=== PATIENT | female | born 1930 | race Caucasian/White ===

== ENCOUNTER 2016-08-15 17:21 | Emergency (ER) | payer MEDICARE ==
[~2016-08-15] VITALS: Ht 157.5 cm; Wt 55.5 kg
[~2016-08-15 17:21] MED LIST: ASPI-378 PO; CA C1TAB28 PO; CALC-787 PO; FERR-83 PO; INSU100V23 SUBQ; OMEP20CA11 PO; PRA20 PO; PYRIDOSTIGMINE PO; SYN.1T2 PO; VITA1CAP PO; prednisone PO
[2016-08-15 17:33] VITALS: BP 231/94; PULSE 75; RESP 16; O2SAT 96
--- NOTE | 2016-08-15 20:14 | ED.REPORT ---
HPI-General Illness Date of Service Aug 15, 2016 ED Provider: Ronaldo Lea DO Patient is a 85 year old female with a history of hypertension who presents to the ED from [place] after she was found to have high blood pressure just prior to arrival. Patient states that she was eating when staff came to take her blood pressure. This upset the patient and her blood pressure was found to be elevated. Her PCP was consulted by [place] staff, who states that she should be sent to the ED. Her blood pressure is typically well controlled by her blood pressure medications, but this happens occasionally when she is upset. Patient denies having a headache, chest pain, shortness of breath, nausea , vomiting, dizziness, or any other discomfort. She denies having any complaints associated with her high blood pressure. Her blood pressure was 231/ 94 on intake. Nursing Notes Stated Complaint: HIGH BLOOD PRESSURE Chief Complaint: General Complaint Nursing Notes Reviewed: Yes Allergies: Coded Allergies: Sulfa (Sulfonamide Antibiotics) (Verified Allergy, Unknown, 08/15/16) Tetanus Vaccines and Toxoid (Verified Allergy, Unknown, 08/15/16) lisinopril (Verified Allergy, Unknown, 08/15/16) Scheduled ([prednisone]) 35 MG PO DAILY ([pyridostigmine]) 60 MG PO TID Aspirin-Expunged Drug, Do Not Renew! (Aspirin-Expunged Drug, Do Not Renew!) 81 Mg Tablet. 81 MG PO AM Ca Cmb No.1/Vit D3/B-6/FA/B12 (Vitamin D3 1,000 Unit Tablet) 1 Each Tablet 1 EACH PO PM Calcium Phosphate Trib/Vit D3 (Citracal-Vit D Gummie Tab Chew) 1 Each Tab.chew 2 EACH PO DAILYWD Ferrous Sulfate (Ferrous Sulfate) 325 Mg Tablet 325 MG PO AM Levothyroxine-Expunged Drug, Do Not Renew! (Synthroid-Expunged Drug, Do Not Renew!) 100 Mcg Tablet 112 MCG PO DAILYAC Omeprazole-Expunged Drug, Do Not Renew! (Omeprazole-Expunged Drug, Do Not Renew! ) 20 Mg Capsule. 20 MG PO DAILY Pravastatin-Expunged Drug, Do Not Renew! (Pravachol-Expunged Drug, Do Not Renew! ) 20 Mg Tab 20 MG PO HS Vitamin B Complex (Vitamin B Complex) 1 Each Capsule 1 EACH PO BID Scheduled PRN Insulin Lispro-Expunged Drug, Do Not Renew! (Humalog-Expunged Drug, Do Not Renew !) 300 Unit Vial 0-3 UNIT SUBQ PRN PRN PRN PER MEDIUM DOSE SLIDING SCALE WHILE ON STEROIDS General Time Seen by MD: 20:06 Chief Complaint Other (hypertension) Hx Obtained From: Patient Arrived By: Ambulance Sudden in Onset?: No Onset Occurred: Just prior to arrival Symptom Duration: Since onset Severity: Current: No pain currently Severity: Maximum: No pain Recent Healthcare: No recent doctor visit, No recent hospitalization Similar Sx Previous: Yes Past Medical History Past Medical History thyroid cancer CVA hypertension gastric ulcer GERD hiatal hernia arthritis Past Surgical History thyroidectomy bilateral leg vein stripping Reports: Cataract surgery Smoking History Unknown if Ever Smoker Social History Other Social History: Good social support, Lives in [place], Local resident Ambulatory Status Independent Review of Systems Full Review of Systems Respiratory: Denies: Non-productive cough, Shortness of breath Cardiovascular: Denies: Chest pain, Palpitations GI: Denies: Nausea, Vomiting Neurologic: Denies: Change LOC, Dizziness, Headache, Lightheaded Complete sys rev & neg: except as marked. Physical Exam Vital Signs Vital Signs Date Time Temp Pulse Resp B/P Pulse Ox O2 Delivery O2 Flow Rate FiO2 08/15/16 22:25 78 20 178/86 08/15/16 20:22 77 20 189/88 95 Room Air 08/15/16 17:33 36.6 75 16 231/94 96 Room Air Initial VS: Reviewed Head / Eyes: Atraumatic, Normocephalic, PERRL ENT: Conjunctiva normal, No scleral icterus Neck: Supple, Full range of motion Respiratory: Breath sounds normal, Clear to auscultation, No respiratory distress Cardiovascular: Regular rate & rhythm, Heart sounds normal Abdomen / GI: Soft, Non-tender, No guarding, No rebound Extremities: Vascular intact, Neuro intact, No swelling, No tenderness Skin: Warm, Dry, No cyanosis Neurologic: Alert, Oriented, Nonfocal Psychiatric: Mood/affect normal, Behavior normal, Normal thought content General/Constitutional: Awake, Alert, No acute distress Interpretation & Diagnostics Lab Results Interpretation Result Diagram: 08/15/16202408/15/162024 Test 08/15/16 20:25 08/15/16 22:10 White Blood Count 5.8th/mm3 (3.8-10.1) Red Blood Count 4.66mil/mm3 (3.90-5.20) Hemoglobin 13.9g/dL (12.0-15.6) Hematocrit 42.9% (35.0-46.0) Mean Corpuscular Volume 92.1fL (81-100) Mean Corpuscular Hemoglobin 29.8pg (27.0-35.0) Mean Corpuscular Hemoglobin Concent 32.4% (32.0-37.0) Red Cell Distribution Width 14.5% (12.3-15.4) Platelet Count 259bil/L (150-400) Neutrophils (%) (Auto) 64.8% (40-74) Lymphocytes (%) (Auto) 26.5% (14-46) Monocytes (%) (Auto) 6.4% (4-12) Eosinophils (%) (Auto) 1.2% (0-5) Basophils (%) (Auto) 0.9% (0-3) Sodium Level 143mEq/L (134-144) Potassium Level 4.2mEq/L (3.5-5.2) Chloride Level 103mEq/L (97-108) Carbon Dioxide Level 22mmol/L (18-29) Blood Urea Nitrogen 16mg/dL (8-27) Creatinine 0.89mg/dL (0.57-1.00) Estimat Glomerular Filtration Rate 86mL/min (>59) Glucose Level 182mg/dL (60-99) Calcium Level 8.9mg/dL (8.5-10.1) Total Bilirubin 0.3mg/dL (0.0-1.2) Aspartate Amino Transf (AST/SGOT) 27U/L (0-50) Alanine Aminotransferase (ALT/SGPT) 14U/L (0-32) Alkaline Phosphatase 82U/L (25-165) Troponin T 0.011ug/L (0.0-0.011) Pro-B-Type Natriuretic Peptide 703.6pg/mL (0-738) Total Protein 7.8g/dL (6.4-8.4) Albumin 4.3g/dL (3.4-5.0) Hold Urine Received (Received) Pulse Oximetry Interpretation Pulse Oximetry: Pulse Ox normal ECG Interpretation ECG Interpretation: Sinus rhythm, Rate 75 LVH Time: 20:16 Interpreted by: ED physician Re-Eval/Medical Decision Source of Hx: Old records Time of Eval: 20:48 Re-Evaluation/Progress Note: Rechecked the patient. Informed her that her blood pressure is now improved. Awaiting lab results prior to discharge. Time of Eval: 21:30 Re-Evaluation/Progress Note: Informed the patient that is call is out to her PCP. Discussed the results of her labs. Time of Eval: 22:07 Patient Status: Condition improved Re-Evaluation/Progress Note: Informed the patient of the conversation with Dr. Alves. Patient will be able to take 2.5mg Felodipine when her blood pressure is above 180 systolic. A nurse will call [place] tomorrow to schedule close follow-up. No acute problem on labs. Patient understands and agrees with the plan to be discharged. Discharge instructions and follow-up discussed. All questions were addressed. Return to the ED warnings given. Consultation : Referral / Consult Name: Lourdes Alves MD Consulted With: Primary care physician, On-call physician Call Returned at: 21:35 [employer] Consultant: Agrees with eval, Agrees with plan Note: Spoke with Dr. Alves, on-call for Dr. Paniagua, about the patient's blood pressure. Discussed possible medication options, so is no longer on Amlodinpine. She should take 2.5mg Felodipine when her blood pressue is elevated above 180 systolic. Retake blood pressure after 2 hours. A nurse will call her tomorrow to schedule follow-up. Counseled Regarding: Diagnosis, Lab results, Need for follow-up, When/why to return to ED Discharge & Departure Primary Impression: Episode of hypertension Additional Impression: Hypertension Hypertension type: essential hypertension Hypertension goal: unspecified goal Qualified Code: I10 - Essential (primary) hypertension Disposition: Home Discharge Condition All VS Reviewed: Yes Condition: Stable Patient Instructions: Chronic Hypertension (ED) Additional Instructions: Your blood pressure was elevated in the emergency department today, which improved after a dose of blood pressure medicine. Stay on your usual blood pressure medications. Your lab work was reassuring. Take an additional 2.5mg Felodipine if your blood pressure is persistently elevated above 180 systolic. Recheck your blood pressure 2 hours after taking this medication. Do not take the additional Felodipine if your heart rate is less than 65 beats per minute. A nurse from your doctor's office will call you tomorrow to schedule a follow- up appointment. Return to the Emergency Department if you experience uncontrollable high blood pressure, chest pain, shortness of breath, fever, or any other concerning symptoms. Referrals: Rox Paniagua MD (PCP) Scribe Attestation Portions of this note were transcribed by Monique Gonzalez. I, Dr. Lea personally performed the history, physical exam and medical decision-making; I reviewed and confirmed the accuracy of the information in the transcribed note. Signed by: Park Weiner, 08/15/2016 [id number] copies to: Rox Paniagua MD, Todd P DO Aug 15, 2016 20:14 Monique Gonzalez Aug 15, 2016 20:29
[2016-08-15 20:22] VITALS: BP 189/88; PULSE 77; RESP 20; O2SAT 95
[2016-08-15 21:17] LABS: BASOPHILS % (AUTO) 0.9 % (0-3); EOSINOPHILS % (AUTO) 1.2 % (0-5); MONOCYTES % (AUTO) 6.4 % (4-12); Mean Corpuscular Hemoglobin 29.8 pg (27.0-35.0); Mean Corpuscular Volume 92.1 fL (81-100); NEUTROPHILS % (AUTO) 64.8 % (40-74); Platelet Count 259 bil/L (150-400)
[2016-08-15 21:31] LABS: TROPONIN T 0.011 ug/L (0.0-0.011)
[2016-08-15 22:25] VITALS: BP 178/86; PULSE 78; RESP 20
== END 2016-08-15 22:27 | disposition home or self-care (01) ==
LOC: EDBD 17:21 → SED 17:21 → EDUNIT# 17:21 → SED 22:27
DX: I10 Essential (primary) hypertension (principal); K21.9 Gastro-esophageal reflux disease without esophagitis; Z86.73 Personal history of transient ischemic attack (TIA), and cerebral infarction without residual deficits; Z88.2 Allergy status to sulfonamides; Z88.7 Allergy status to serum and vaccine; Z88.8 Allergy status to other drugs, medicaments and biological substances